=== PATIENT | male | born 1990 | race Caucasian/White ===

== ENCOUNTER 2022-10-09 11:08 | Emergency (ER) | payer OTHER ==
[~2022-10-09] VITALS: Ht 170.2 cm; Wt 79.0 kg
[2022-10-09 11:10] VITALS: BP 126/82
[2022-10-09] MEDS ORDERED: DEXAMETHASONE 4MG/ML 1ML VIAL IM ONE (12:30)
[2022-10-09] MEDS ORDERED: KETOROLAC 30MG/ML VIAL IM ONE (12:30)
[2022-10-09] MEDS ORDERED: NAPR-1176 PO (12:33)
[2022-10-09] MEDS ORDERED: CYCL10TA21 PO (12:33)
== END 2022-10-09 13:25 | disposition home or self-care (01) ==
LOC: ER 11:21
DX: S33.5XXA Sprain of ligaments of lumbar spine, initial encounter (principal); I10 Essential (primary) hypertension; X58.XXXA Exposure to other specified factors, initial encounter; Y93.01 Activity, walking, marching and hiking; Y92.89 Other specified places as the place of occurrence of the external cause; Z86.73 Personal history of transient ischemic attack (TIA), and cerebral infarction without residual deficits
CPT/HCPCS: 96372; 99284; J1100; J1885; Z7610